=== PATIENT | female | born 1930 | race Caucasian/White ===

== ENCOUNTER 2017-09-22 15:04 | Emergency (ER) | payer BC, MEDICARE ==
[~2017-09-22] VITALS: Ht 160 cm; Wt 90.7 kg
--- NOTE | 2017-09-22 15:45 | NUR ---
PT REC'D TO ER VIA [facility] PT FELL THIS MORNING 0900 HAD PAIN WHEN WALKS . IV STARTED 20 G RT AC LABS DRAWN SENT O LAB . DENIES PAIN AT THIS TIME VSS SON AT BEDSIDE XRAY DONE AWAITING EVALUATION BY ER PROVIDER.
[2017-09-22 15:46] LABS: BASOPHILS % (AUTO) 0.3 % (0.0-2.0); EOSINOPHILS % (AUTO) 0.4 % (0.0-6.0); HEMATOCRIT 35 % (33-45); HEMOGLOBIN 12.1 g/dL (11.5-14.8); LYMPHOCYTES # (AUTO) 0.6 /CMM (0.8-4.8); LYMPHOCYTES % (AUTO) 6.6 % (20.0-44.0); MEAN CORPUSCULAR HGB CONC 35 g/dl (31.0-36.0); MEAN CORPUSCULAR VOLUME 86 fL (82-100); MONOCYTES # (AUTO) 0.3 /CMM (0.1-1.30); MONOCYTES % (AUTO) 3.2 % (2.0-12.0); NEUTROPHILS # (AUTO) 8.7 /CMM (1.8-8.9); NEUTROPHILS % (AUTO) 89.5 % (43.0-81.0); PLATELET COUNT (AUTO) 191 /CMM (150-450); RDW COEFFICIENT OF VARIATION 13.2 (11.5-15.0); RED BLOOD CELL COUNT(AUTO) 4.11 MIL/uL (4.0-5.2); WHITE BLOOD COUNT (AUTO) 9.6 K/uL (4.3-11.0)
[2017-09-22 15:56] LABS: CALCIUM, SERUM 8.4 mg/dL (8.5-10.1); CARBON DIOXIDE 29 mmol/L (21-32); CHLORIDE 103 mmol/L (98-107); CREATININE 1.3 mg/dL (0.6-1.3); GLUCOSE 149 mg/dL (74-106); POTASSIUM 4.2 mmol/L (3.5-5.1); SODIUM SERUM 140 mmol/L (136-145); UREA NITROGEN, BLOOD 16 mg/dL (7-18)
[2017-09-22 16:16] LABS: INR 0.95 (0.87-1.13)
--- NOTE | 2017-09-22 16:39 | NUR ---
T SENT TO CT
[2017-09-22] MEDS ORDERED: LEVO25TA9 PO (17:49)
--- NOTE | 2017-09-22 18:20 | NUR ---
FACESHEET FAXED OVER TO [facility]. [phone] FAX [phone]
--- NOTE | 2017-09-22 19:24 | NUR ---
REPORT RECEIVED FROM FER MCPHERSON FOR [facility].
--- NOTE | 2017-09-22 19:34 | NUR ---
CALLED [facility], WELL TESTING OPERATOR RE: PT'S TRANSFER. [facility] SPOKE TO DR. RAVI AND NOW THE TEAM IS WORKING ON PLACEMENT INTO A SNF. THE RN WILL CALL BACK WITH DETAILS WHEN THEY HAVE THE SNF INFORMATION
--- NOTE | 2017-09-22 21:12 | NUR ---
SPOKE WITH FRANCISCO, PATIENT HAS PLACEMENT AT [facility]. MESSAGE LEFT FOR SON. MARKETING PROPOSAL SPECIALIST FRANCISCO ALSO TRYING TO REACH SON.
[2017-09-22 23:00] VITALS: BP 139/66
--- NOTE | 2017-09-22 23:00 | NUR ---
PT RESTING COMFORTABLY WITH EYES OPEN. VSS.
--- NOTE | 2017-09-23 01:21 | NUR ---
PT ACCEPTED TO [facility] GIVE REPORT TO [phone] Addendum: 09/23/17 at 0123 by ABELINO GOING TO [place] [id number].
--- NOTE | 2017-09-23 01:45 | NUR ---
REPORT GIVEN TO ASHLEIGH AT [facility] FOR [facility].
--- NOTE | 2017-09-23 02:41 | NUR ---
REPORT GIVEN TO [facility] FOR TRANSPORT.
== END 2017-09-23 02:44 ==
LOC: ER 15:07
DX: S32.592A Other specified fracture of left pubis, initial encounter for closed fracture (principal); I45.10 Unspecified right bundle-branch block; I70.0 Atherosclerosis of aorta; M16.0 Bilateral primary osteoarthritis of hip; M51.36 Other intervertebral disc degeneration, lumbar region; W01.0XXA Fall on same level from slipping, tripping and stumbling without subsequent striking against object, initial encounter; Y93.89 Activity, other specified; Y92.89 Other specified places as the place of occurrence of the external cause; Y99.8 Other external cause status
CPT/HCPCS: 36415; 71045; 72192; 73503; 80048; 85025; 85730; 87081; 93005; 99285; A4606; 73502; Z7610

== ENCOUNTER 2017-10-12 09:58 | Emergency (ER) | payer BC ==
[~2017-10-12] VITALS: Ht 167.6 cm; Wt 84.8 kg
[~2017-10-12 09:58] MED LIST: LEVO25TA9 PO
--- NOTE | 2017-10-12 10:10 | NUR ---
[id number]: ALOC. UNABLE TO CARE FOR SELF. Hx OF FREQUENT FALLS. SEEN BY MD FOR EVAL. IV ACCESS HIV NURSE. SAFETY AND COMFORT MEASURES PROVIDED. WILL MONITOR.
[2017-10-12] MEDS ORDERED: ACETAMINOPHEN ES 500 MG TABLET ONE (10:22)
[2017-10-12] MEDS ORDERED: IV NS 0.9% 1,000 ML BAG IV ONE (10:30)
[2017-10-12] MEDS ORDERED: PIPERACILLIN /TAZOBACTAM 3.375 G in IV D5W 50 ML IV ONE (10:30)
[2017-10-12] MEDS ORDERED: ACETAMINOPHEN ES 500 MG TABLET PO ONE (10:30)
--- NOTE | 2017-10-12 10:40 | NUR ---
IV ACCESS STARTED. BLOOD AND CULTURES DRAWN FOR LABS. MEDICATED ORDERED.
[2017-10-12 10:46] LABS: BASOPHILS % (AUTO) 0.4 % (0.0-2.0); EOSINOPHILS % (AUTO) 2.9 % (0.0-6.0); HEMATOCRIT 36 % (33-45); HEMOGLOBIN 12.2 g/dL (11.5-14.8); LYMPHOCYTES # (AUTO) 1.1 /CMM (0.8-4.8); LYMPHOCYTES % (AUTO) 20.1 % (20.0-44.0); MEAN CORPUSCULAR HGB CONC 34 g/dl (31.0-36.0); MEAN CORPUSCULAR VOLUME 85 fL (82-100); MONOCYTES # (AUTO) 0.3 /CMM (0.1-1.30); MONOCYTES % (AUTO) 5.6 % (2.0-12.0); NEUTROPHILS # (AUTO) 3.6 /CMM (1.8-8.9); PLATELET COUNT (AUTO) 329 /CMM (150-450); RED BLOOD CELL COUNT(AUTO) 4.23 MIL/uL (4.0-5.2); WHITE BLOOD COUNT (AUTO) 5.3 K/uL (4.3-11.0)
[2017-10-12 10:55] LABS: CALCIUM, SERUM 8.8 mg/dL (8.5-10.1); CARBON DIOXIDE 26 mmol/L (21-32); CHLORIDE 106 mmol/L (98-107); GLUCOSE 105 mg/dL (74-106); POTASSIUM 4.1 mmol/L (3.5-5.1); SODIUM SERUM 141 mmol/L (136-145); UREA NITROGEN, BLOOD 20 mg/dL (7-18)
[2017-10-12 11:01] LABS: ALANINE AMINOTRANSFERASE 27 U/L (12-78); ALKALINE PHOSPHATASE 204 U/L (46-116); ASPARTATE AMINOTRANSFERASE 19 U/L (15-37); BILIRUBIN,DIRECT 0.2 mg/dL (0.0-0.2); BILIRUBIN,TOTAL 0.7 mg/dL (0.2-1.0); TOTAL PROTEIN, SERUM 7.9 g/dL (6.4-8.2)
[2017-10-12 11:03] LABS: TROPONIN I < 0.017 ng/mL (0.00-0.056)
[2017-10-12 11:05] LABS: APPEARANCE,URINE Turbid (CLEAR); BILIRUBIN,URINE Negative (NEGATIVE); BLOOD, URINE Trace-lysed Ery/uL (NEGATIVE); COLOR,URINE Yellow (YELLOW); KETONES,URINE Trace (NEGATIVE); LEUKOCYTE ESTERASE ,URINE Negative (NEGATIVE); NITRITE, URINE Negative (NEGATIVE); PROTEIN,URINE Negative (NEGATIVE); UGLUCOSE Negative (NEGATIVE); UROBILINOGEN,URINE 0.2 EU/dL (0.2)
[2017-10-12 11:05] LABS: INR 0.98 (0.85-1.15)
[2017-10-12 11:15] LABS: BACTERIA,URINE Few /HPF (None Seen); SQUAMOUS EPITHELIAL CELL,UR Many /HPF (None Seen); WBC,URINE 0-3 /HPF (0-3)
--- NOTE | 2017-10-12 12:30 | NUR ---
FAMILY MEMBER AT BS AND UPDATED WITH POC.
--- NOTE | 2017-10-12 13:15 | NUR ---
PT CLEANED AND CHANGED PER PROTOCOL. KEPT COMFORTABLE. WILL MONITOR.
--- NOTE | 2017-10-12 14:15 | NUR ---
FAXED OVER FACE SHEET AND CLINICALS TO [facility]
--- NOTE | 2017-10-12 14:48 | NUR ---
RPatient is resting comfortably in bed with eyes closed. Easily aroused. VSS
--- NOTE | 2017-10-12 16:11 | NUR ---
[facility] CALLED FOR EVAL REGARDING PLACEMENT ANS RESOURCES
--- NOTE | 2017-10-12 16:14 | NUR ---
LUZ FROM [facility] CALLED AND SAID THAT THEY WILL SEE THE PATIENT
--- NOTE | 2017-10-12 16:19 | NUR ---
ASSOCIATE SOFTWARE DEVELOPER AND MOTION PICTURE CRITIC AT .
--- NOTE | 2017-10-12 18:30 | NUR ---
Patient is resting comfortably in bed with eyes closed. Easily aroused. VSS
--- NOTE | 2017-10-12 19:49 | NUR ---
REPORT GIVEN TO JESUS MONROE FOR [facility].
--- NOTE | 2017-10-12 20:31 | NUR ---
CALLED SON ED AGAIN ON [phone]; LEFT MESSAGE
--- NOTE | 2017-10-12 20:41 | NUR ---
CALLED [facility] AND SPOKE TO [phone]. "WILL SEND SOMEONE THERE"
--- NOTE | 2017-10-12 21:08 | NUR ---
SON CALLED BACK AND STATES "MY PHOEN RAN OUT OF BUTTERY AND THAT'S WHY IT'S BEEN OFF BUT I WILL BE HOME WAITING FOR MY MOM TO COME BACK". NOTIFIED.
--- NOTE | 2017-10-12 21:11 | NUR ---
CALLED [facility] AND SPOKE WITH MIGUEL TO ARRANGE A BLS TRANSPORT BACK TO THEIR RESIDENCE. ETA CARTOGRAPHIC ENGINEER TIME OF 0100 AM WAS GIVEN. TRIP#: [id number]
--- NOTE | 2017-10-12 23:48 | NUR ---
Patient discharged to home in stable condition after updating son. Written and verbal after care instructions given. Patient verbalizes understanding of instruction. IV removed. Catheter intact and site benign. Pressure and 4x4 applied to site. No bleeding noted.
[2017-10-12 23:49] VITALS: BP 106/75
== END 2017-10-12 23:50 | disposition home or self-care (01) ==
LOC: ER 10:00
DX: R53.1 Weakness (principal); F03.90 Unspecified dementia, unspecified severity, without behavioral disturbance, psychotic disturbance, mood disturbance, and anxiety; M19.90 Unspecified osteoarthritis, unspecified site; I45.2 Bifascicular block; N39.0 Urinary tract infection, site not specified; R79.1 Abnormal coagulation profile; R41.82 Altered mental status, unspecified
CPT/HCPCS: 36415; 70450-TC; 71045-TC; 80048-TC; 80076-TC; 81000-TC; 83605-TC; 84484-TC; 85025-TC; 85730-TC; 87040-TC; 87086-TC; A4606; J2543; J7030; J7060; Z7610